=== PATIENT | female | born 1965 | race Caucasian/White ===

== ENCOUNTER 2020-09-09 15:27 | Emergency (ER) | payer MEDICAID ==
[~2020-09-09] VITALS: Ht 157.5 cm; Wt 100.0 kg
[2020-09-09 15:33] VITALS: BP 168/117
[2020-09-09] MEDS ORDERED: ACETAMINOPHEN 325MG TABLET PO ONE (16:30)
[2020-09-09] MEDS ORDERED: IBUP-2029 MT (17:24)
== END 2020-09-09 17:54 | disposition home or self-care (01) ==
LOC: ER 15:27
DX: M79.671 Pain in right foot (principal); M25.552 Pain in left hip; M25.572 Pain in left ankle and joints of left foot; F41.9 Anxiety disorder, unspecified; I10 Essential (primary) hypertension; Z87.19 Personal history of other diseases of the digestive system; E03.9 Hypothyroidism, unspecified; Z98.890 Other specified postprocedural states
CPT/HCPCS: 73060; 73110; 73502; 73610; 73630; 99284

== ENCOUNTER 2020-12-23 15:16 | Emergency (ER) | payer MEDICAID ==
[~2020-12-23] VITALS: Ht 165.1 cm; Wt 100.0 kg
[~2020-12-23 15:16] MED LIST: IBUP-2029 MT
[2020-12-23 17:57] VITALS: BP 170/86
[2020-12-23] MEDS ORDERED: BACITRACIN ZINC OINT UDPKT TOP ONE (18:00)
[2020-12-23] MEDS ORDERED: IBUPROFEN 600MG TABLET PO ONE (18:00)
[2020-12-23] MEDS ORDERED: IBUP-2028 MT (19:26)
== END 2020-12-23 21:25 | disposition home or self-care (01) ==
LOC: ER 15:16
DX: R51.9 Headache, unspecified (principal); M54.9 Dorsalgia, unspecified; M79.671 Pain in right foot; I10 Essential (primary) hypertension; Z86.39 Personal history of other endocrine, nutritional and metabolic disease
CPT/HCPCS: 70450; 72100; 73630; 99284; Z7610